=== PATIENT | male | born 1980 | race Two or more races ===

== ENCOUNTER 2018-06-06 18:18 | Emergency (ER) | payer OTHER ==
[~2018-06-06] VITALS: Ht 190.5 cm; Wt 147.4 kg
== END 2018-06-06 21:29 | disposition home or self-care (01) ==
LOC: ER 18:18
DX: J09.X2 Influenza due to identified novel influenza A virus with other respiratory manifestations (principal); J32.8 Other chronic sinusitis

== ENCOUNTER 2018-08-29 22:16 | Emergency (ER) | payer OTHER ==
[~2018-08-29] VITALS: Ht 190.5 cm; Wt 158.8 kg
== END 2018-08-30 12:45 | disposition home or self-care (01) ==
LOC: ER 22:16
DX: R60.0 Localized edema (principal)

== ENCOUNTER 2019-12-14 06:05 | Emergency (ER) | payer OTHER ==
[~2019-12-14] VITALS: Ht 190.5 cm; Wt 158.8 kg
[2019-12-14] MEDS ORDERED: CEFUROXIME500 MG PO (08:02)
[2019-12-14] MEDS ORDERED: KETO10TA2 PO (08:02)
== END 2019-12-14 08:18 ==
LOC: ER 06:05
DX: H60.8X1 Other otitis externa, right ear (principal)